=== PATIENT | male | born 1985 | race Caucasian/White ===

== ENCOUNTER 2022-05-25 02:05 | Emergency (ER) | payer OTHER ==
[~2022-05-25] VITALS: Ht 177.8 cm; Wt 68.9 kg
[2022-05-25] MEDS ORDERED: PROAIR RESPICL90 MCG IH (02:23)
[2022-05-25] MEDS ORDERED: ZYNCOF 20-400120 ML PO (04:57)
[2022-05-25] MEDS ORDERED: SINGULAIR 10MG10 MG PO (04:57)
[2022-05-25] MEDS ORDERED: BUDESONIDE0.5 MG/2 M IH (04:57)
== END 2022-05-25 05:04 ==
LOC: ER 02:05
DX: J45.901 Unspecified asthma with (acute) exacerbation (principal); Z20.822 Contact with and (suspected) exposure to COVID-19

== ENCOUNTER 2022-12-06 06:00 | Emergency (ER) | payer OTHER ==
[~2022-12-06] VITALS: Ht 177.8 cm; Wt 72.6 kg
[~2022-12-06 06:00] MED LIST: BUDESONIDE0.5 MG/2 M IH; PROAIR RESPICL90 MCG IH; SINGULAIR 10MG10 MG PO; ZYNCOF 20-400120 ML PO
== END 2022-12-06 07:30 | disposition home or self-care (01) ==
LOC: ER 06:00
DX: J45.901 Unspecified asthma with (acute) exacerbation (principal)

== ENCOUNTER 2023-02-03 08:06 | Outpatient (CLI) | payer OTHER | END 2023-02-03 08:11 | disposition home or self-care (01) | LOC: RAD 08:06 | PROVIDERS: ATTEND Internal Medicine Pulmonary Disease | DX: J44.1 Chronic obstructive pulmonary disease with (acute) exacerbation (principal) ==

== ENCOUNTER 2024-12-05 21:15 | Emergency (ER) | payer OTHER ==
[~2024-12-05] VITALS: Ht 172.7 cm; Wt 72.6 kg
[2024-12-05 21:37] VITALS: BP 138/82; O2SAT 98
[2024-12-05] MEDS ORDERED: KETOROLAC TROMETHAMINE 10 MG TABLET PO ONE ×2 (21:47→22:00)
[2024-12-05] MEDS ORDERED: NORFLEX100MG PO (22:43)
== END 2024-12-05 22:49 | disposition home or self-care (01) ==
LOC: ER 21:15
DX: R07.81 Pleurodynia (principal); J45.909 Unspecified asthma, uncomplicated

== ENCOUNTER 2025-02-10 22:04 | Emergency (ER) | payer OTHER ==
[~2025-02-10] VITALS: Ht 177.8 cm; Wt 73.5 kg
[~2025-02-10 22:04] MED LIST changes: +NORFLEX100MG PO
[2025-02-10] MEDS ORDERED: SINGULAIR10 MG PO (23:20)
[2025-02-10] MEDS ORDERED: 0.9 % SODIUM CHLORIDE 500 ML IV ONE (23:45)
[2025-02-10] MEDS ORDERED: DEXAMETHASONE SODIUM PHOSPHATE 4 MG/ML VIAL IV ONE (23:45)
[2025-02-11] MEDS ORDERED: DEXAMETHASONE SODIUM PHOSPHATE 4 MG/ML VIAL ONE (00:18)
[2025-02-11 00:42] LABS: BASO % 0.8 % (0.1-1.2); EOS # 0.41 (0.04-0.54); EOS % 5.6 % (0.7-7.0); LYMPH # 2.42 (1.18-3.74); LYMPH % 32.9 % (19.3-53.1); MEAN PLATELET VOLUME 10.30 fl (9.4-12.4); MONO # 0.37 (0.24-0.82); MONO % 5.0 % (4.7-12.5); NEUT # 4.08 (1.56-6.13); NEUT % 55.4 % (34.0-71.1); RED CELL DISTRIBUTION WIDTH 12.5 % (11.6-14.4)
[2025-02-11 01:09] LABS: ALT/SGPT 33.0 U/L (12-78); AST/SGOT 25.0 U/L (15-37); BILIRUBIN TOTAL 0.54 mg/dL (0.3-1.2); BUN CREA RATIO 16.0 (7.0-25.0); CREATININE SERUM 1.12 mg/dL (0.70-1.30); GFR 72.25; GLOBULINA 4.0 G/DL (2.4-3.5); GLUCOSE FASTING 87.0 mg/dL (65-100); OSMOLALITY SERUM 283.0 MOSM/KG (275-295)
== END 2025-02-11 03:32 | disposition home or self-care (01) ==
LOC: ER 22:04
PROVIDERS: General Practice
DX: R22.1 Localized swelling, mass and lump, neck (principal)